=== PATIENT | male | born 1975 | race Caucasian/White ===

== ENCOUNTER 2020-04-15 16:44 | Outpatient (CLI) | payer OTHER | END 2020-04-15 16:45 | disposition home or self-care (01) | LOC: COV 16:44 | PROVIDERS: ATTEND Family Medicine | DX: R53.83 Other fatigue (principal); J34.89 Other specified disorders of nose and nasal sinuses; Z20.822 Contact with and (suspected) exposure to COVID-19 ==

== ENCOUNTER 2022-09-08 14:23 | Outpatient (CLI) | payer OTHER ==
[2022-09-08 19:37] LABS: BASOPHILS # (AUTO) 0.1 10^3/uL (0.0-0.1); BASOPHILS % (AUTO) 0.7 %; EOSINOPHILS # (AUTO) 0.2 10^3/uL (0.0-0.7); EOSINOPHILS % (AUTO) 2.7 %; HCT - HEMATOCRIT 52.9 % (42.0-52.0); HGB - HEMOGLOBIN 17.7 g/dL (14.0-18.0); LYMPHOCYTES # (AUTO) 1.4 10^3/uL (1.5-3.5); LYMPHOCYTES % (AUTO) 18.2 %; MEAN CORPUSCULAR HEMOGLOBIN 32.9 pg (27.0-31.0); MEAN CORPUSCULAR HGB CONC 33.5 g/dL (32.0-36.0); MEAN CORPUSCULAR VOLUME 98.3 fL (80.0-94.0); MEAN PLATELET VOLUME 10.8 fL (7.4-11.4); MONOCYTES # (AUTO) 0.7 10^3/uL (0.0-1.0); NEUTROPHILS % (AUTO) 67.9 %; PLT - PLATELET COUNT 254 10^3/uL (130-450); RED BLOOD COUNT 5.38 10^6/uL (4.70-6.10); RED CELL DISTRIBUTION WIDTH 12.5 % (12.0-15.0); WHITE BLOOD COUNT 7.4 x10^3/uL (4.8-10.8)
[2022-09-08 19:51] LABS: ALBUMIN 4.1 g/dL (3.2-5.5); ALBUMIN/GLOBULIN RATIO 1.1 (1.0-2.2); ALKALINE PHOSPHATASE 71 IU/L (42-121); ALT ALANINE AMINOTRANSFERASE 45 IU/L (10-60); AST ASPARTATE AMINOTRANSFERASE 35 IU/L (10-42); BUN - BLOOD UREA NITROGEN 13 mg/dL (6-20); CALCIUM 8.8 mg/dL (8.5-10.3); CARBON DIOXIDE - CO2 26 mmol/L (21-32); CHLORIDE 105 mmol/L (101-111); CHOL/HDL RATIO 2.9 (<5.0); CHOLESTEROL 167 mg/dL; CREATININE 1.3 mg/dL (0.6-1.2); GFR - MDRD 59 (>89); GLUCOSE 128 mg/dL (70-100); HDL CHOLESTEROL 57 mg/dL; LDL CHOLESTEROL,CALCULATED 87 mg/dL; LDL/HDL RATIO 1.5 (<3.6); SODIUM 138 mmol/L (135-145); TOTAL PROTEIN 7.8 g/dL (6.7-8.2); TRIGLYCERIDES 117 mg/dL; URIC ACID 8.9 mg/dL (2.6-7.2); VLDL CHOLESTEROL 23 mg/dL
[2022-09-08 20:03] LABS: THYROID STIMULATING HORMONE 1.52 uIU/mL (0.34-5.60)
[2022-09-08 20:55] LABS: ESTIMATED AVERAGE GLUCOSE 117 mg/dL (70-100); HEMOGLOBIN A1c% 5.7 % (4.27-6.07)
== END 2022-09-08 14:24 | disposition home or self-care (01) ==
LOC: LAB.S 14:23
PROVIDERS: ATTEND Internal Medicine
DX: M10.9 Gout, unspecified (principal); Z87.898 Personal history of other specified conditions; R60.9 Edema, unspecified; I87.2 Venous insufficiency (chronic) (peripheral)
CPT/HCPCS: 36415; 80053; 80061; 83036; 83721; 83880; 84443; 84550; 85025

== ENCOUNTER 2022-09-28 13:24 | Outpatient (CLI) | payer OTHER ==
--- NOTE | 2022-09-28 16:44 | XRAY Report ---
PROCEDURE: Lumbar Spine Complete INDICATIONS: RENAL INSUFFICIENCY,MILD TECHNIQUE: 5 views of the lumbar spine were acquired. COMPARISON: None. FINDINGS: Bones: 5 [id number] vertebrae are present. There is normal bony alignment. No vertebral body compression fractures. No suspicious bony lesions. Multilevel disc space narrowing and endplate ost eophyte formation, as well as facet hypertrophy. Soft tissues: Overlying bowel gas pattern is normal. No suspicious soft tissue calcifications. IMPRESSION: 1. Multilevel degenerative disc and facet disease. 2. No acute fracture. No osseous lesion. If symptoms and/or clinical suspicion for pathology continue , further assessment with repeat plain films, or advanced imaging (e.g., CT, MRI, or bone scan) is re commended for further assessment. Reviewed by: Darwin Chino MD on 09/28/2022 4:43 PM PDT Approved by: Darwin Chino MD on 09/28/2022 4:43 PM PDT Station ID: [id number]
[2022-09-28 19:54] LABS: BASOPHILS % (AUTO) 0.5 %; EOSINOPHILS # (AUTO) 0.2 10^3/uL (0.0-0.7); EOSINOPHILS % (AUTO) 2.8 %; HCT - HEMATOCRIT 50.6 % (42.0-52.0); HGB - HEMOGLOBIN 16.8 g/dL (14.0-18.0); LYMPHOCYTES # (AUTO) 1.4 10^3/uL (1.5-3.5); LYMPHOCYTES % (AUTO) 18.4 %; MEAN CORPUSCULAR HEMOGLOBIN 33.1 pg (27.0-31.0); MEAN CORPUSCULAR HGB CONC 33.2 g/dL (32.0-36.0); MEAN CORPUSCULAR VOLUME 99.6 fL (80.0-94.0); MEAN PLATELET VOLUME 10.8 fL (7.4-11.4); MONOCYTES # (AUTO) 0.8 10^3/uL (0.0-1.0); MONOCYTES % (AUTO) 9.9 %; NEUTROPHILS # (AUTO) 5.3 10^3/uL (1.5-6.6); NEUTROPHILS % (AUTO) 67.6 %; PLT - PLATELET COUNT 243 10^3/uL (130-450); RED BLOOD COUNT 5.08 10^6/uL (4.70-6.10); RED CELL DISTRIBUTION WIDTH 12.8 % (12.0-15.0); WHITE BLOOD COUNT 7.8 x10^3/uL (4.8-10.8)
[2022-09-28 20:06] LABS: ALBUMIN 3.8 g/dL (3.2-5.5); ALBUMIN/GLOBULIN RATIO 1.1 (1.0-2.2); ALKALINE PHOSPHATASE 70 IU/L (42-121); ALT ALANINE AMINOTRANSFERASE 42 IU/L (10-60); AST ASPARTATE AMINOTRANSFERASE 33 IU/L (10-42); BILIRUBIN,TOTAL 0.6 mg/dL (0.2-1.0); BUN - BLOOD UREA NITROGEN 12 mg/dL (6-20); CALCIUM 8.6 mg/dL (8.5-10.3); CARBON DIOXIDE - CO2 26 mmol/L (21-32); CHLORIDE 105 mmol/L (101-111); CREATININE 1.2 mg/dL (0.6-1.2); GFR - MDRD 64 (>89); GLUCOSE 122 mg/dL (70-100); SODIUM 138 mmol/L (135-145); TOTAL PROTEIN 7.3 g/dL (6.7-8.2); URIC ACID 8.1 mg/dL (2.6-7.2)
[2022-09-28 20:08] LABS: CRP - C-REACTIVE PROTEIN < 1.0 mg/dL (0-1.0)
== END 2022-09-28 13:25 | disposition home or self-care (01) ==
LOC: DI.S 13:24
PROVIDERS: ATTEND Internal Medicine
DX: N28.9 Disorder of kidney and ureter, unspecified (principal); G47.30 Sleep apnea, unspecified; M10.9 Gout, unspecified; R03.0 Elevated blood-pressure reading, without diagnosis of hypertension; R60.9 Edema, unspecified; Z87.898 Personal history of other specified conditions; L50.9 Urticaria, unspecified; I87.2 Venous insufficiency (chronic) (peripheral); M51.36 Other intervertebral disc degeneration, lumbar region; M47.816 Spondylosis without myelopathy or radiculopathy, lumbar region
CPT/HCPCS: 36415; 80053; 84550; 85025; 86140

== ENCOUNTER 2022-10-18 11:36 | Outpatient (CLI) | payer OTHER ==
--- NOTE | 2022-10-18 13:20 | SLEEP CARE CONSULTATION ---
Information from patient questionnaire entered by Anni Rizzo. I have reviewed and concur with the information entered by Anni Rizzo. This document represents the service I personally performed and the decisions made by me, Kathi Meek MD, [facility]. History of Present Illness Service Date and Time: 10/18/2022 1136 Reason for Visit: New patient Chief Complaint: reports: Unrefreshed sleep, Snoring, Excessive daytime sleepiness, Observed pauses in breathing, Fatigue Date of Onset: LONG I CAN REMEMBER Usual bedtime: 11-12 Time it takes to fall asleep: VARIES Snores at night: Yes Observed to quit breathing while asleep: Yes Sleeps alone due to snoring: Yes Number of times waking at night: VARIES Reasons for waking at night: reports: Choking, Gasping for air, Pain, Bathroom, Other (UNKNOWN) Toss, Turn, or Twitch while sleeping: Yes Recalls having dreams: Yes Usually gets out of bed at: VARIES Feels refreshed in the morning: No Morning headache: No Sleepy or fatigued during the day: Yes Ever fallen asleep while driving: No Takes day naps: Yes Dreams during day naps: No Prior sleep studies: No Additional HPI information: I had the pleasure of seeing Mr. Bennett today regarding the possibility of him having a sleep disorder. As you know, he is a 47-year-old gentleman who complains of loud snore and people have seen him quit breathing in his sleep. The patient tells me that he normally goes to bed around 11 pm - midnight, and it takes him variable amount of time to fall asleep. He has been told that he snores loudly and irregularly at night. He has also been observed to stop breathing in his sleep. He normally sleeps alone. He can recall waking up on the average of 3 - 4 times during the night. Most of the time he wakes up because of having to use the bathroom. He has awakened occasionally because of his own snoring, choking, and having to gasp for air. There is a lot of tossing and turning in his sleep. No somniloquy (sleep talking) or somnambulism (sleep walking). Generally, he can recall having dreams. In the morning he usually gets up out of the bed at variable time, not feeling refreshed nor rested. He usually does not have a morning headache. During the day he complains of feeling sleepy and fatigued. His score on [place] Sleepiness Scale is 6 out of 24. He never has fallen asleep while driving nor has had any accident due to sleepiness. He usually takes naps during the day. He reports denies having impaired concentration during the day. - Parasomnia Symptoms Ever been unable to move upon waking from sleep: No Walks in sleep: No Talks in sleep: Yes Ever acted out dreams in sleep: No Ever felt weak in the knees when startled or emotional: No Bothered by creepy, crawly, restless sensations in legs: Yes Problems with memory or concentration: Yes Subjective Initial [place] Sleepiness Scale score: 6 (10/18/22) Past Medical History Past Medical History: reports: Arthritis, Gout, Anxiety, Depression, Attention deficit Social History The patient's occupation is a UNEMPLOYED. Patient is Single and lives in . Have you smoked in the past 12 months: Yes Cigarettes per day (20/pack): 10 Years of smokin Smoking Pack Years: 15.0 Alcohol use: Yes Alcohol amount and frequency: 1-2 3-4 TIMES A WEEK Caffeine use: Yes Caffeine amount and frequency: TWO MUCH A LOT OFTEN Family History Family history of sleep disordered breathing: Yes Family Hx Sleep Apnea: Mother: Snoring, Sleep apnea - Treated Allergies and Home Medications Known drug allergies: No Drug allergies reviewed: Yes Home medication list reviewed: Yes Review of Systems Cardiovascular: reports: leg or foot swelling Respiratory: denies: shortness of breath, wheeze, sputum production, chronic cough, other Gastrointestinal: reports: heartburn Urinary: denies: incontinence, frequency, urgency, impotence, other Neurological: denies: headaches, seizure, head trauma, disorientation, speech dysfunction, gait or balance problems, fainting or unconsciousness, other Psychiatric: reports: anxiety, depression Ear/Nose/Throat: denies: nasal congestion, sinus problems, nose bleeds, dry malu th/throat, hoarseness, injury to nose, tonsillectomy, wisdom teeth removed, other Endocrine: denies: thyroid disease, history of goiter, sluggishness, too hot or cold, excessive thirst, increased appetite, increased urination, unexplained weakness, other Musculoskeletal: reports: joint pain, back pain, joint swelling, muscle pain or cramping, mobility problems Immunologic: denies: sneezing, rash, itching, allergies to food or environment, other Physical Exam Vital signs obtained and entered by: ANNI Wu MA Blood Pressure: 164/110 (LEFT ARM) Cuff size: long Heart Rate: 84 O2 Saturation: 98 Height: 6 ft 2 in Weight: 351 lb Body Mass Index: 45.0 BMI Classification: Morbidly Obese Neck circumference: 21.5 Mood/affect: normal HEENT: No craniofacial malformation Nostrils: partially obstructed (right) Turbinates: normal Septum: deviated right Mouth and throat: narrow oropharynx Soft palate: long Hard palate: normal Uvula: normal Uvula visualization: 25% Mallampati Class III Tongue: normal in size Tonsils: small Chin and jaw: normal size and position Neck: normal w/o lymphadenopathy or thyromegaly Heart: regular rate and rhythm Lungs: clear bilaterally Extremities: 1+ edema Neurologic: intact Impression and Plan IMPRESSION: 1. Obstructive Sleep Apnea-Hypopnea Syndrome, as suggested by history of loud and irregular snoring, observed cessation of breath while asleep, frequent awakenings during the night, unrefreshed sleep, cognitive impairment, and daytime hypersomnolence. Narrow oropharynx and obesity are common predisposing factors for obstructive sleep apnea-hypopnea syndrome. Untreated obstructive sleep apnea can also cause hypertension. I recommend proceeding to polysomnography to confirm the diagnosis and to assess severity. If he has significant sleep disordered breathing, a manual CPAP titration study will also be performed to find the optimal treatment pressure. I informed the patient of what the sleep studies involve and after some discussion, he agreed to proceed. Plan: 1. Schedule polysomnography + manual CPAP titration study and return in 1 to 2 weeks after the study to discuss result and initiate therapy. 2. Avoid long distance driving or when feeling sleepy. 3. Avoid alcohol, sedatives, and muscle relaxants around bedtime. 4. Attempt to lose weight. Counseling Topics: Weight control Follow up with Sleep Care in: 1-2 months Visit Type: In Office Time Spent with Patient (minutes): 15 Provider Statement: I spent 100% of the Face to Face Visit with the patient with greater than 50% spent counseling the patient and coordination of care.
[2022-10-18 13:26] VITALS: BP 164/110
== END 2022-10-18 11:37 | disposition home or self-care (01) ==
LOC: SC 11:36
PROVIDERS: ATTEND Internal Medicine Pulmonary Disease
DX: G47.10 Hypersomnia, unspecified (principal); G47.8 Other sleep disorders; R06.83 Snoring; R06.81 Apnea, not elsewhere classified; I10 Essential (primary) hypertension; E66.01 Morbid (severe) obesity due to excess calories; Z68.42 Body mass index [BMI] 45.0-49.9, adult; F17.210 Nicotine dependence, cigarettes, uncomplicated
CPT/HCPCS: 99202; 99212

== ENCOUNTER 2022-10-22 14:49 | Outpatient (CLI) | payer OTHER ==
--- NOTE | 2022-10-22 18:19 | XRAY Report ---
PROCEDURE: Knee 2 View BILAT INDICATIONS: LEG LENGTH DISCREPANCY, LOW BACK PAIN CHRONIC TECHNIQUE: 2 views of the bilateral knee(s) were acquired. COMPARISON: None. FINDINGS: Bones: No fractures or dislocations. No suspicious bony lesions. Mild tricompartmental degenerative changes of the bilateral knees . Soft tissues: No knee joint effusion. No suspicious soft tissue calcifications or masses. IMPRESSION: No acute bony abnormality. Tricompartmental osteoarthrosis of the bilateral knees. Reviewed by: Yomi Carmona MD on 10/22/2022 5:18 PM MARLENY Approved by: Yomi Carmona MD on 10/22/2022 5:18 PM MARLENY Station ID: [id number]
--- NOTE | 2022-10-22 18:27 | XRAY Report ---
PROCEDURE: Hips 2V BILAT INDICATIONS: CHRONIC LOW BACK PAIN TECHNIQUE: 5 views of the hip were acquired. COMPARISON: None. FINDINGS: Bones: No fractures or dislocations. No suspicious bony lesions. Minimal degenerative changes of the bilateral hips. Soft tissues: No suspicious soft tissue calcifications or masses. IMPRESSION: No acute bony abnormality. Minimal bilateral hip degenerative change. Reviewed by: Yomi Carmona MD on 10/22/2022 5:25 PM AKDT Approved by: Yomi Carmona MD on 10/22/2022 5:25 PM AKDT Station ID: [id number]
== END 2022-10-22 14:50 | disposition home or self-care (01) ==
LOC: DI.S 14:49
PROVIDERS: ATTEND Internal Medicine
DX: M17.0 Bilateral primary osteoarthritis of knee (principal); M16.0 Bilateral primary osteoarthritis of hip

== ENCOUNTER 2022-10-23 20:21 | Outpatient (CLI) | payer OTHER | END 2022-10-23 23:59 | disposition EMS.NT | LOC: EMS 20:21 | DX: T75.1XXA Unspecified effects of drowning and nonfatal submersion, initial encounter (principal); V92.05XA Drowning and submersion due to fall off canoe or kayak, initial encounter; Y93.89 Activity, other specified; Y92.832 Beach as the place of occurrence of the external cause ==

== ENCOUNTER 2022-12-10 12:27 | Outpatient (CLI) | payer OTHER | END 2022-12-10 12:28 | disposition home or self-care (01) | LOC: SC 12:27 | PROVIDERS: ATTEND Internal Medicine Pulmonary Disease | DX: G47.10 Hypersomnia, unspecified (principal); G47.8 Other sleep disorders; R06.83 Snoring; R06.81 Apnea, not elsewhere classified; I10 Essential (primary) hypertension; G47.33 Obstructive sleep apnea (adult) (pediatric); R09.02 Hypoxemia | CPT/HCPCS: 95806 ==

== ENCOUNTER 2023-01-04 12:28 | Outpatient (CLI) | payer OTHER | END 2023-01-04 12:29 | disposition home or self-care (01) | LOC: SC 12:28 | PROVIDERS: ATTEND Internal Medicine Pulmonary Disease | DX: G47.33 Obstructive sleep apnea (adult) (pediatric) (principal); R09.02 Hypoxemia; R00.0 Tachycardia, unspecified | CPT/HCPCS: 95806 ==

== ENCOUNTER 2023-02-28 15:32 | Outpatient (CLI) | payer OTHER ==
--- NOTE | 2023-02-28 23:01 | SLEEP CARE CONSULTATION ---
Information from patient questionnaire entered by Vance Rizzo. I have reviewed and concur with the information entered by Vance Rizzo. This document represents the service I personally performed and the decisions made by me, Kathi Meek MD, [facility]. History of Present Illness Service Date and Time: 02/28/2023 1532 Initial [place] Sleepiness Scale score: 6 (10/18/22) Additional HPI information: Mr. Bennett returned for follow up of the home sleep apnea test (HSAT) he had on 01/05/2023. The test showed that severe obstructive sleep apnea-hypopnea, with an AHI of 77.3/hr and arely SaO2 of 70%. During the study, the patient had 155 apneas (155 obstructive, 0 central, 0 mixed) and 8 hypopneas. The longest episode lasted 58.0 seconds. The respiratory events occurred independently of body position (supine AHI was 77.8 and non-supine, 76.80). Hypoxemia was moderate, with the lowest oxygen saturation of 70 % and 47.9 minutes with SaO2 under 90%. Baseline oxygen saturation was normal (Average oxygen saturation was 91%). The patient was informed of these findings. I explained to him the pathophysiology behind obstructive sleep apnea. We then spent quite a bit of time discussing different treatment options. For mild obstructive sleep apnea, surgery and oral appliance are alternatives to nasal CPAP therapy but in moderate or severe cases, nasal CPAP is the most effective and reliable treatment. Weight loss in an obese individual is strongly recommended. After some discussion, he opted to go with the nasal CPAP therapy. I explained to him how CPAP machine works and what to expect when using the machine. He is encouraged to use CPAP every night especially in the first 2 to 3 nights in order to get used to it. He should call his CPAP supplier or me to discuss any mechanical problem that may occur. If he snores or feels like he is not getting enough air from the machine, he should notify me and I will increase the pressure. Sleep Study - Results Type of Sleep Study: Home sleep study (COMPLETED 01/05/23) Prior sleep studies: No Allergies and Home Medications Drug allergies reviewed: Yes Home medication list reviewed: Yes Allergy and home medication list: Allergies No Known Drug Allergies Allergy (Verified 10/18/22 11:44) Review of Systems Review of systems same as previous: Yes Physical Exam Vital signs obtained and entered by: VANCE Wu MA Height: 6 ft 2 in (PER PT) Weight: 310 lb (PER PT) Body Mass Index: 39.8 BMI Classification: Obese Impression and Plan IMPRESSION: 1. Obstructive Sleep Apnea-Hypopnea Syndrome, very severe, associated with moderate hypoxemia. Obviously, this is the cause of the patients symptoms of unrefreshed sleep, and excessive daytime sleepiness. As mentioned above, the patient will be started on an autoCPAP set between 5 - 15. Depending on his response and compliance he may be brought back for an overnight CPAP titration study. PLAN: 1. Prescription made for an autoCPAP, heated humidifier, and related supplies through [employer]. 2. Attempt to lose weight and avoid alcohol consumption near bedtime. 3. The patient is again cautioned about driving until his sleepiness completely resolves on the CPAP therapy. Counseling Topics: Weight control Prescriptions: Auto CPAP Follow up with Sleep Care in: 1-2 months Visit Type: Telehealth Phone Time Spent with Patient (minutes): 15 Provider Statement: I spent 100% of the Telehealth Phone Call with the patient with greater than 50% spent counseling the patient and coordination of care.
== END 2023-02-28 15:33 | disposition home or self-care (01) ==
LOC: SC 15:32
PROVIDERS: ATTEND Internal Medicine Pulmonary Disease
DX: G47.33 Obstructive sleep apnea (adult) (pediatric) (principal); E66.9 Obesity, unspecified; Z68.39 Body mass index [BMI] 39.0-39.9, adult
CPT/HCPCS: 99442